=== PATIENT | female | born 2000 | race Caucasian/White ===

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

== ENCOUNTER 2022-01-06 12:33 | Emergency (ER) | payer OTHER, SELFPAY ==
--- NOTE | ~2022-01-06 | US_ITS ---
EXAMINATION: US PELVIS CLINICAL INFORMATION: IUD placement, pain COMPARISON: None TECHNIQUE: Ultrasound of the pelvis is performed using both transabdominal and transvaginal transducers along with Doppler. Transvaginal imaging is performed due to inadequate visualization transabdominally. FINDINGS: Uterus: The uterus is anteverted and measures 7.5 x 3.3 x 3.8 cm. IUD in satisfactory location without migration or perforation. The double wall endometrial thickness is 12 mm. The uterus is smooth in contour and has normal myometrial echogenicity. No visible fibroid. Adnexa: Both ovaries are visualized. There is normal color flow to the adnexa. There is no ovarian torsion. There is no pelvic ascites or fluid collection. Right ovary measures 5 mL in the left ovary also measures 5 mL. Trace physiologic free fluid in the cul-de-sac. US/US pelvic and transvaginal IMPRESSION: IUD in good position.
[2022-01-06 13:21] VITALS: BP 127/75; PULSE 80; RESP 16; TEMP 36.3; O2SAT 98; BMI 40.7
--- NOTE | 2022-01-06 16:59 | ED.GENADULT ---
HPI - General Adult General Chief complaint: Abdominal Pain Stated complaint: sharp abd pain after IUD Time Seen by Provider: 01/06/22 16:59 Source: patient and family (mother) Mode of arrival: ambulatory Limitations: no limitations History of Present Illness HPI narrative: Patient is a 21 year old female presenting to the emergency department today with abdominal cramping after having an IUD placed. Patient states that she had an IUD placed for the first time this past Sunday and starting 2 days after, has had abdominal pain. Patient states that she can still feel the strings of the IUD but is concerned that she can feel less string than she initially could. Patient denies any dizziness, lightheadedness, nausea, vomiting, fever, chills, blurry vision, double vision, loss of vision, chest pain, difficulty breathing, shortness of breath, back pain, night sweats, pain with urination, increased urinary frequency, increased urinary urgency, blood in her urine or stool, syncope or a near syncopal episode, recent trauma or falls, bowel incontinence, bladder incontinence, bowel retention, bladder retention, or any other complaints at this time. Onset (ago): day(s) (2) Location: abdomen Radiation: non-radiation Severity: mild Severity scale (1-10): 3 Quality: dull Pain Consistency: constant Relieving factors: none Exacerbating factors: none Associated symptoms: denies other symptoms Treatments prior to arrival: none Related Data Home Medications Medication Instructions Recorded Confirmed dextroamphetamine-amphetamine ER 1 cap PO DAILY PRN ADHD 09/08/21 12/05/21 30 mg 24hr capsule,extend release (Adderall XR) fluticasone propionate 50 2 spray intranasal DAILY PRN 09/08/21 12/05/21 mcg/actuation nasal Allergy Symptoms spray,suspension melatonin 5 mg tablet 15 mg PO BEDTIME PRN Sleep 09/08/21 12/05/21 Previous Rx's Medication Instructions Recorded apixaban 5 mg (74 tabs) tablets in See Rx Instructions .Route 09/07/21 a dose pack (Eliquis DVT-PE Treat .COMPLEX #74 ea 30D Start) ferrous sulfate 325 mg (65 mg 325 mg PO BID #60 tabs 09/13/21 iron) tablet (iron) oxycodone 5 mg capsule 5 mg PO Q8H PRN pain #3 caps 01/06/22 Allergies Allergy/AdvReac Type Severity Reaction Status Date / Time Penicillins [PCN] Allergy Unknown Verified 09/07/21 17:48 Review of Systems Constitutional: Constitutional: Reports no additional constitutional complaints, Denies chills, Denies fever(s) and Denies night sweats Eyes: Eyes: Reports no additional eye complaints, Denies blurry vision, Denies change in vision, Denies diplopia, Denies eye discharge, Denies loss of vision and Denies eye pain ENT: Denies dizziness Cardiovascular: Cardiovascular: Reports no additional cardiovascular complaints, Denies chest pain, Denies lightheadedness, Denies Loss of Consciousness and Denies dyspnea Respiratory: Respiratory: Reports no additional respiratory complaints and Denies dyspnea Gastrointestinal: Gastrointestinal: Reports no additional gastrointestinal complaints, Reports abdominal pain, Denies melena, Denies hematochezia, Denies change in bowel habits and Denies change in stool character Genitourinary: Genitourinary: Denies hematuria, Denies urinary frequency, Denies dysuria, Denies urinary incontinence, Denies urinary hesitancy and Denies urinary urgency Musculoskeletal: Musculoskeletal: Reports no additional musculoskeletal complaints, Denies numbness and Denies tingling Neurologic: Denies dizziness, Denies loss of vision, Denies numbness and Denies tingling Psychiatric: Psychiatric: Reports no additional psychiatric complaints Endocrine: Endocrine: Reports no additional endocrine complaints Hematologic/Lymphatic: Hematologic/Lymphatic: Reports no additional hematologic/lymphatic complaints Allergic/Immunologic: Allergic/Immunologic: Reports no additional allergic/immunologic complaints PMFSH Past Medical History Attestation statement: The following information was validated with the patient. Source: old records reviewed Medical History DVT (deep venous thrombosis) Surgical History No pertinent past surgical history Family History Family History Other DVT (deep venous thrombosis) No family history of coronary artery disease Pulmonary embolism Social History Social History Household Members: Family Housing: Apartment Alcohol intake: current Alcohol intake frequency: holidays/special occasions only Patient Tobacco Use Status: Never used Tobacco Use of substances other than those prescribed or required for medical reasons: No Advance Directives: Yes Advance Directives on File: Yes Advance Directives Date on File: 09/12/21 Patient : No service: No Current occupational status: employed Physical Exam ED Vital Signs: Vital Signs - 24 hr 01/06/22 13:21 01/06/22 18:15 Temperature 97.4 F 98.0 F Pulse Rate 80 83 Respiratory Rate 16 16 Blood Pressure 127/75 128/72 Pulse Oximetry 98 98 Oxygen Delivery Method Room Air Room Air BMI result Body Mass Index 40.7 Const General: cooperative, no acute distress, alert and awake Nutritional Appearance: well nourished Orientation/consciousness: patient oriented x3 Limitations: no limitations HENMT Head: Yes normal to inspection and Yes atraumatic Ears: hearing grossly normal bilaterally and external ears normal General nose exam: Normal external nose present, no nasal discharge noted and no epistaxis Face and sinus: Yes normal facial exam, No abrasion and No laceration Mouth: Normal oral and palatal mucosa present, no drooling and no muffled voice Eyes General: appearance normal, both eyes and all related structures Periorbital: periorbital findings normal Eyelids: Yes eyelids normal Conjunctivae: conjunctivae normal Pupils: Equal, round and reactive pupils present EOM: EOMs intact bilaterally Neck Neck: Yes normal visual inspection, Yes full ROM and Yes no lymphadenopathy Chest Chest palpation & inspection: normal inspection of the chest Resp Effort & Inspection: normal respiratory effort and able to speak in complete sentences Auscultation: clear to auscultation bilaterally Cardio Rate: regular rate Rhythm: regular rhythm GI Inspection: Yes normal to inspection Palpation (GI): Soft to palpation, not firm, nontender, no guarding and not rigid Neuro General: patient oriented x3 and moves all extremities Cranial nerves: Yes Equal, round and reactive pupils present Cognition (Neuro): normal cognition Motor exam (neuro): 5/5 motor strength present throughout Sensory Exam: Normal double simultaneous stimulation for sensation Coordination: [id number] test normal Extrem General: Yes normal to inspection, Yes full ROM and Yes capillary refill normal Psych Appearance: grossly normal Mental Status: mental status grossly normal Affect: normal affect Attitude: cooperative Thought process: Normal thought process present Thought content: Normal thought content present Insight: Good insight present (Psych) Medical Decision Making MDM Narrative Medical decision making narrative: Patient is a 21 year old female presenting to the emergency department today with abdominal cramping. Patient's physical exam was unremarkable. Patient's transvaginal US showed no acute process and showed an IUD in correct placement. I explained my physical exam findings as well as all test results to the patient and the patient's mother. I answered all questions asked by the patient and the patient's mother. I stressed the importance of the patient taking her medication as prescribed. I stressed the importance of the patient following up with her primary care provider and her OBGYN. I stressed the importance of the patient returning to the emergency department immediately if her symptoms were to worsen or if she were to develop any dizziness, shortness of breath, difficulty breathing, chest pain, blurry vision, loss of vision, nausea, vomiting, abdominal pain, fever, chills, back pain, or any other complaints. Patient and the patient's mother verbalized agreement and understanding with this treatment plan and discharge. Medical Records Medical records reviewed: Yes I reviewed the patient's medical records. Imaging Data Transvaginal ultrasound: Attestation: I personally reviewed and interpreted this imaging study as follows: My impression: No acute process. Radiologist's impression: EXAMINATION:? US PELVIS CLINICAL INFORMATION:? IUD placement, pain COMPARISON: None TECHNIQUE: Ultrasound of the pelvis is performed using both transabdominal and transvaginal transducers along with Doppler. Transvaginal imaging is performed due to inadequate visualization transabdominally. FINDINGS: Uterus: The uterus is anteverted and measures 7.5 x 3.3 x 3.8 cm.? IUD in satisfactory location without migration or perforation. The double wall endometrial thickness is 12 mm.? The uterus is smooth in contour and has normal myometrial echogenicity. ? No visible fibroid. Adnexa: Both ovaries are visualized. There is normal color flow to the adnexa. There is no ovarian torsion.? There is no pelvic ascites or fluid collection. Right ovary measures 5 mL in the left ovary also measures 5 mL. Trace physiologic free fluid in the cul-de-sac. US/US pelvic and transvaginal IMPRESSION: IUD in good position Dictated By: Rashawn Timmons MD Signed By: Electronically signed by Rashawn Timmons MD 01/06/22 [id number] Discharge Plan Discharge Clinical Impression: Uterine cramping Patient Disposition: Home, Self-Care Additional Instructions: Follow up with your primary care provider and your OBGYN. Return to the emergency department immediately if your symptoms worsen or if you develop any dizziness, shortness of breath, difficulty breathing, chest pain, blurry vision, loss of vision, nausea, vomiting, abdominal pain, fever, chills, back pain, or any other complaints. Prescriptions: New oxycodone 5 mg capsule 5 mg PO Q8H PRN (Reason: pain) Qty: 3 0RF Rx Instructions: Partial Fill upon patient request. No Action Eliquis DVT-PE Treat 30D Start 5 mg (74 tabs) tablets,dose pack See Rx Instructions .ROUTE .COMPLEX Qty: 74 0RF Rx Instructions: 10mg PO BID x 7 days 5mg BID ferrous sulfate [iron] 325 mg (65 mg iron) Tablet 325 mg PO BID Qty: 60 3RF dextroamphetamine-amphetamine [Adderall XR] 30 mg capsule,extended release 24hr 1 cap PO DAILY PRN (Reason: ADHD) fluticasone propionate 50 mcg/actuation spray,suspension 2 spray intranasal DAILY PRN (Reason: Allergy Symptoms) melatonin 5 mg Tablet 15 mg PO BEDTIME PRN (Reason: Sleep) [place] [facility] [place] [facility] [place] (Call to establish and follow up with a primary care provider. If you already have a primary care provider, please follow up with them. ) [facility] [place] [facility] [place] (Call to establish and follow up with a primary care provider. If you already have a primary care provider, please follow up with them. ) [facility] [place] [facility] [place] (Call to establish and follow up with a primary care provider. If you already have a primary care provider, please follow up with them. ) Interventions: ED Discharge Assessment Last Done: 01/06/22 18:34 Discharge Date/Time: 01/06/22 18:35 Print Language: Greek
[2022-01-06 18:15] VITALS: BP 128/72; PULSE 83; RESP 16; TEMP 36.7; O2SAT 98
== END 2022-01-06 18:35 | disposition home or self-care (01) ==
PROVIDERS: Emergency Provider Student in an Organized Health Care Education/Training Program
DX: R10.2 Pelvic and perineal pain (principal); N94.89 Other specified conditions associated with female genital organs and menstrual cycle; Z79.899 Other long term (current) drug therapy
CPT/HCPCS: 76830; 76856; 99284

== ENCOUNTER 2022-02-06 15:16 | Emergency (ER) | payer OTHER, SELFPAY ==
[2022-02-06 15:27] VITALS: BP 118/75; PULSE 98; RESP 18; TEMP 37.3; O2SAT 99; BMI 39.1
--- NOTE | 2022-02-06 15:34 | PC.NURSE ---
pt decided that she was going to leave after her vitals were stable in triage and her mother decided they needed to pick and shovel man the steroids vs wait 3 hours.
== END 2022-02-06 16:43 | disposition left against medical advice (07) ==
PROVIDERS: Emergency Provider Emergency Medicine
DX: J02.0 Streptococcal pharyngitis (principal)
CPT/HCPCS: 99281

== ENCOUNTER 2022-06-19 18:58 | Emergency (ER) | payer OTHER, SELFPAY ==
--- NOTE | ~2022-06-19 | US_ITS ---
EXAMINATION: US VENOUS ULTRASOUND WITH DOPPLER LOWER EXTREMITY, BILATERAL CLINICAL INFORMATION: Lower extremity swelling COMPARISON: None TECHNIQUE: Ultrasound of the deep veins is performed from the hip to the calf with compression sonography and color and pulse Doppler assessment. Spectral analysis with color-flow imaging is performed. FINDINGS: RIGHT: There is normal venous compression and respiratory variation and augmented flow. The visualized common femoral vein, superficial femoral vein, profunda femoral vein, popliteal vein, and the trifurcation region shows no evidence of deep venous thrombosis. There is no significant popliteal fossa cyst. LEFT: There is normal venous compression and respiratory variation and augmented flow. The visualized common femoral vein, superficial femoral vein, profunda femoral vein, popliteal vein, and the trifurcation region shows no evidence of deep venous thrombosis. There is no significant popliteal fossa cyst. Slightly prominent but otherwise normal-appearing lymph node noted in the left groin measuring up to 5.6 mm in cross-section If the patient's symptoms persist, followup ultrasound in 5 days 7 days might be of value to exclude proximal propagation from a non-visualized calf vein. US/US venous duplex LE BI IMPRESSION: No DVT demonstrated in the right and left lower extremity.
[2022-06-19 19:10] VITALS: BP 120/86; PULSE 91; RESP 18; TEMP 37.6; O2SAT 99; BMI 39.1
--- NOTE | 2022-06-19 19:13 | ECG_ITS ---
Test Reason : rule out dvt Blood Pressure : / mmHG Vent. Rate : 077 BPM Atrial Rate : 077 BPM P-R Int : 150 ms QRS Dur : 076 ms QT Int : 370 ms P-R-T Axes : 029 056 050 degrees QTc Int : 418 ms Normal sinus rhythm with sinus arrhythmia Normal ECG When compared with ECG of 07-OCT-2021 17:18, No significant change was found Referred By: Reyna Dugan Electronically Signed By:Alex Ferrari
--- NOTE | 2022-06-19 19:14 | ED.SOB ---
HPI - SOB/Dyspnea General Chief Complaint: Extremity Problem Stated Complaint: right leg pain, hx dvt and blood clogs Related Data Home Medications Medication Instructions Recorded Confirmed dextroamphetamine-amphetamine ER 1 cap PO DAILY PRN ADHD 09/08/21 01/17/22 30 mg 24hr capsule,extend release (Adderall XR) fluticasone propionate 50 2 spray intranasal DAILY PRN 09/08/21 01/17/22 mcg/actuation nasal Allergy Symptoms spray,suspension melatonin 5 mg tablet 15 mg PO BEDTIME PRN Sleep 09/08/21 01/17/22 Mirena vaginal DIRECTED birthcontrol 01/17/22 Previous Rx's Medication Instructions Recorded ferrous sulfate 325 mg (65 mg 325 mg PO BID #60 tabs 09/13/21 iron) tablet (iron) apixaban 2.5 mg tablet 2.5 mg PO BID #60 tabs 05/02/22 Allergies Allergy/AdvReac Type Severity Reaction Status Date / Time Penicillins [PCN] Allergy Unknown Verified 06/19/22 19:14 [facility] Past Medical History Medical History DVT (deep venous thrombosis) Surgical History No pertinent past surgical history Family History Family History Other DVT (deep venous thrombosis) No family history of coronary artery disease Pulmonary embolism Social History Social History Household Members: Family Housing: Apartment Alcohol intake: current Alcohol intake frequency: holidays/special occasions only Patient Tobacco Use Status: Never used Tobacco Advance Directives: Yes Advance Directives on File: Yes Advance Directives Date on File: 09/12/21 service: No Current occupational status: employed Physical Exam Vital Signs: Vital Signs: Last Vital Signs Temp 99.6 F 06/19/22 19:10 Pulse 91 06/19/22 19:10 Resp 18 06/19/22 19:10 BP 120/86 06/19/22 19:10 Pulse Ox 99 06/19/22 19:10 O2 Del Method 06/19/22 19:10 BMI result Body Mass Index 39.1 Course Course Course Narrative: RME - 21 yo female with history of Factor V Leiden with history of PE and DVT on low dose Eliquis 2.5 BID (dose reduction by Dr. Cuba in Jan) who presents to the ER with RLE pain for 1.5 weeks along with new onset SOB and chest pain today. Admits to frequently missing Eliquis doses. VSS in triage. Will get CTA chest, LE dopplers to assess for DVT/PE. Medical Decision Making Lab Data 06/19/22 20:17 06/19/22 20:17 Labs: Lab Results 06/19/22 06/19/22 Range/Units 20:17 20:17 WBC 8.6 (4.8-10.8) X10*3/uL RBC 4.51 (4.20-5.50) X10*6/uL Hgb 12.9 (12.0-16.0) g/dl Hct 37.7 (37.0-47.0) % MCV 83.6 (80.0-98.0) fL MCH 28.6 (27.0-33.0) pg MCHC 34.2 (31.0-35.0) g/dl RDW 12.6 (11.0-16.0) % Plt Count 239 (160-400) X10*3/uL MPV 9.9 (9.4-12.3) fL Immature Gran % (Auto) 0.2 (0.0-0.4) % Neut % (Auto) 60.6 (45-73) % Lymph % (Auto) 30.1 (20-40) % [place] % (Auto) 5.8 (2-11) % Eos % (Auto) 2.7 (0-4) % Baso % (Auto) 0.6 (0-2) % Lymph # (Auto) 2.6 (1.2-4.9) X10*3/uL [place] # (Auto) 0.5 (0.1-1.2) X10*3/uL Eos # (Auto) 0.2 (0.0-0.4) X10*3/uL Baso # (Auto) 0.1 (0.0-0.2) X10*3/uL Abs Immat Gran (auto) 0.02 (0.00-0.03) X10*3/uL Absolute Neuts (auto) 5.2 (2.0-8.3) x10*3/uL Absolute Nucleated RBC 0.000 (0.0-0.012) X10*3/uL Nucleated RBC % (auto) 0.0 (0.0-0.2) /100WBC Sodium 138 (135-145) mmol/L Potassium 3.9 (3.3-5.1) mmol/L Chloride 107 (96-108) mmol/L Carbon Dioxide 23 (22-29) mmol/L Anion Gap 12 (12-20) BUN 10 (9-16) mg/dL Creatinine 0.85 (0.5-1.4) mg/dL Estim Creat Clear Calc 138.3 Estimated GFR > 60 Random Glucose 85 (60-115) mg/dL Calcium 9.6 (8.4-10.2) mg/dL Magnesium 1.9 (1.6-2.6) mg/dL Total Bilirubin 0.5 (0.0-1.0) mg/dL Direct Bilirubin < 0.2 (0.0-0.5) mg/dL AST 19 (5-31) U/L ALT 15 (0-31) U/L Alkaline Phosphatase 57 (39-117) U/L Total Protein 7.2 (6.5-8.0) g/dL Albumin 4.4 (3.5-5.0) g/dL Discharge Plan Discharge Clinical Impression: Hypercoagulable state Patient Disposition: Left Without Being Seen Interventions: LWBS Worksheet Last Done: 06/19/22 22:32 Discharge Date/Time: 06/19/22 22:33
[2022-06-19 20:21] LABS: MANUAL DIFF FLAG NO
[2022-06-19 20:22] LABS: Basophils Absolute Auto 0.1 X10*3/uL (0.0-0.2); Basophils Percent Auto 0.6 % (0-2); Eosinophils Absolute Auto 0.2 X10*3/uL (0.0-0.4); Eosinophils Percent Auto 2.7 % (0-4); Hematocrit 37.7 % (37.0-47.0); Hemoglobin 12.9 g/dl (12.0-16.0); Imm Gran Abs Auto 0.02 X10*3/uL (0.00-0.03); Imm Gran Pct Auto 0.2 % (0.0-0.4); Lymphocytes Absolute Auto 2.6 X10*3/uL (1.2-4.9); Lymphocytes Percent Auto 30.1 % (20-40); Mean Corpuscular HGB Conc 34.2 g/dl (31.0-35.0); Mean Corpuscular Hemoglobin 28.6 pg (27.0-33.0); Mean Corpuscular Volume 83.6 fL (80.0-98.0); Mean Platelet Volume 9.9 fL (9.4-12.3); Monocytes Absolute Auto 0.5 X10*3/uL (0.1-1.2); Monocytes Percent Auto 5.8 % (2-11); Neutrophils Absolute Auto 5.2 x10*3/uL (2.0-8.3); Neutrophils Percent Auto 60.6 % (45-73); Platelet Count 239 X10*3/uL (160-400); Red Blood Count 4.51 X10*6/uL (4.20-5.50); Red Cell Distribution Width 12.6 % (11.0-16.0); White Blood Count 8.6 X10*3/uL (4.8-10.8)
--- NOTE | 2022-06-19 20:24 | MHC.EDTECH ---
pt blood drawn and send to lab ,ekg done .
[2022-06-19 20:41] LABS: Alanine Aminotransferase 15 U/L (0-31); Albumin Level 4.4 g/dL (3.5-5.0); Alkaline Phosphatase 57 U/L (39-117); Anion Gap 12 (12-20); Aspartate Amino Transferase 19 U/L (5-31); Bilirubin Direct < 0.2 mg/dL (0.0-0.5); Bilirubin Total 0.5 mg/dL (0.0-1.0); Blood Urea Nitrogen 10 mg/dL (9-16); Calcium 9.6 mg/dL (8.4-10.2); Carbon Dioxide 23 mmol/L (22-29); Chloride 107 mmol/L (96-108); Creatinine Clr Calc Pharmacy 138.3; Estimated Glomerular Filt Rate > 60; Glucose Random 85 mg/dL (60-115); Magnesium 1.9 mg/dL (1.6-2.6); Potassium 3.9 mmol/L (3.3-5.1); Sodium 138 mmol/L (135-145); Total Protein 7.2 g/dL (6.5-8.0)
== END 2022-06-19 22:33 | disposition left against medical advice (07) ==
PROVIDERS: Physician Assistant; Emergency Provider Emergency Medicine; PCP Pediatrics
DX: D68.51 Activated protein C resistance (principal); M79.604 Pain in right leg; R06.02 Shortness of breath; Z86.718 Personal history of other venous thrombosis and embolism; Z86.711 Personal history of pulmonary embolism; Z79.01 Long term (current) use of anticoagulants
CPT/HCPCS: 36415; 80048; 80076; 83735; 85025; 93005; 93970; 99283; 99284

== ENCOUNTER 2023-08-14 14:32 | Emergency (ER) | payer OTHER, SELFPAY ==
--- NOTE | ~2023-08-14 | CT_ITS ---
CT head/brain wo IV con CLINICAL INFORMATION: Reason for Exam hx clots, posterior ESPITIA COMPARISON: Prior CT September 2021 TECHNIQUE: Department standard protocol. This CT examination was performed using dose optimization techniques as appropriate, variously including the following: *Automated exposure control *Adjustment of mA and/or kV according to patient size (this includes techniques or standardized protocols for targeted exams where dose is matched to indication/reason for exam; i.e. extremities or head) *Use of iterative reconstruction technique DLP: 789 mGy-cm FINDINGS: CEREBRAL HEMISPHERES: There is no evidence of intra-axial or extra-axial mass, hemorrhage or acute infarct. BRAIN PARENCHYMA: Normal tolentino-white matter differentiation. SUBDURAL SPACE: No bleed. BASAL GANGLIA AND PINEAL GLAND: Unremarkable VENTRICLES: Symmetric and normal in size. CEREBELLUM AND BRAINSTEM: No space-occupying mass, hemorrhage or acute infarct. CEREBELLOPONTINE ANGLES: No lesion found. ORBITS: No intraorbital mass. VESSELS: Unremarkable SKULL BASE: Unremarkable INCLUDED SINUSES AT SKULL BASE: Clear SKULL AND SKIN: No fracture or bone lesion found. CT/CT head/brain wo IV con IMPRESSION: No CT explanation for patient's headache. If there is a clinical suspicion for possible intracranial venous thrombosis, would recommend correlation with follow-up contrast enhanced MRV.
--- NOTE | ~2023-08-14 | CT_ITS ---
EXAMINATION: CT VENOGRAM HEAD CLINICAL INFORMATION: Headache. History of blood clots. COMPARISON: CT head from 08/14/2023. CTA head and neck from 09/07/2021. TECHNIQUE: Initial noncontrast shaker operator imaging of the head was performed. Comparison is made with noncontrast head CT from earlier today. Test bolus sequences followed by intravenous administration 75 mL of Omnipaque 350. Helical imaging was performed in the axial plane from the skull base to the skull vertex. The data was processed at the aeronautical engineering technologist's workstation for generation of MIP sequences. Angled MIPs and volume rendered reformatted images were also generated at an offline 3D workstation. Stenoses are assessed in accordance with NASCET criteria unless otherwise indicated. This CT examination was performed using dose optimization techniques as appropriate, variously including the following: *Automated exposure control. *Adjustment of mA and/or kV according to patient size (this includes techniques or standardized protocols for targeted exams where dose is matched to indication/reason for exam; i.e. extremities or head). *Use of iterative reconstruction technique. DLP: 961 mGy-cm FINDINGS: CT Head: There is no evidence of acute intracranial hemorrhage or edematous territorial infarction. Suarez-white matter differentiation is preserved. There is no abnormal attenuation within the brain parenchyma. The ventricles are normal in morphology and size. No evidence for obstructive hydrocephalus. No abnormal mass effect or midline shift. No extra-axial fluid collections. No pathologic intra-axial enhancement. No acute soft tissue or osseous abnormalities. Mild mucosal thickening of the paranasal sinuses. Mild leftward nasal septal deviation. The mastoid air cells and middle ear cavities are clear. Brain CTV: Normal opacification of the superior sagittal and straight sinuses. Right dominant transverse/sigmoid sinuses. Chronic hypoplastic appearance of the left transverse sinus. The left sigmoid sinus is chronically diminutive but remains with normal opacification. Normal appearance of the cavernous sinus without abnormal filling defects or contours. No demonstrated significant abnormalities of the major intracranial arterial systems on limited evaluation. CT/CT angio head IMPRESSION: 1. No evidence of acute intracranial hemorrhage or edematous territorial infarction. 2. CTV of the head without evidence of cerebral venous sinus thrombosis.
[2023-08-14 15:24] VITALS: BP 120/75; PULSE 66; RESP 16; TEMP 36.6; O2SAT 97; BMI 46.9
--- NOTE | 2023-08-14 15:24 | ED_ITS ---
HPI - General Adult General Chief complaint: Headache Stated complaint: Dizziness/Headache/Disorientated Time Seen by Provider: 08/14/23 17:52 Source: patient Mode of arrival: ambulatory Limitations: no limitations History of Present Illness HPI narrative: 22 yo female with PMH of factor V leiden no longer on eliquis, migraine without auras, PEs, here with c/o 1 week atraumatic posterior headache and n/v. Was going to get CT head by PCP but CT scan broke today as outpatient. She denies fevers. She has tension down into the neck. Preceding this she did have mild URI but finished zpak. She notes she takes scheduled tylenol, motrin, aleve PRN. She is sensitive to lights and loud noises. MD complaint: headache Onset (ago): week(s) (1) Location: head Radiation: non-radiation Severity: severe Quality: other (throbbing) Pain Consistency: constant Relieving factors: none Exacerbating factors: other (noise, bright lights) Associated symptoms: headaches and nausea/vomiting Treatments prior to arrival: NSAID Related Data Home Medications ?Medication ?Instructions ?Recorded ?Confirmed melatonin 5 mg tablet 15 mg PO BEDTIME PRN Sleep 09/08/21 06/21/22 Mirena vaginal DIRECTED birthcontrol 01/17/22 Ritalin 10 mg PO DAILY 06/12/23 06/12/23 sertraline 100 mg tablet (Zoloft) 100 mg PO DAILY 06/12/23 06/12/23 trazodone 100 mg PO DAILY 06/12/23 06/12/23 Previous Rx's ?Medication ?Instructions ?Recorded apixaban 2.5 mg tablet 2.5 mg PO BID #60 tabs 06/12/23 metoclopramide HCl 10 mg tablet 10 mg PO Q6H PRN nausea and 08/14/23 (Reglan) vomiting #14 tabs Allergies Allergy/AdvReac Type Severity Reaction Status Date / Time clindamycin Allergy Hives Verified 08/14/23 15:27 Penicillins [PCN] Allergy Unknown Verified 08/14/23 15:27 Review of Systems 2 Review of Systems: Constitutional : No Fever, No Chills, No Fatigue ENT/Mouth : No sore throat, No Rhinorrhea Eyes: No Eye Pain, No Swelling, No Redness Cardiovascular : No Chest Pain, No SOB, No Dyspnea on Exertion Respiratory : No Cough, No Sputum Gastrointestinal : pos Nausea, pos Vomiting, No Diarrhea, No abdominal Pain Genitourinary : No Dysuria, No Urinary Frequency, No Hematuria, Musculoskeletal : No joint pain, No Myalgias, No Joint Swelling Skin : No Skin Lesions, No rash Neuro : No Weakness, No Numbness, No Dizziness, positive Headache Psych : No Anxiety/Panic, No Depression All other systems reviewed and are negative [facility] Past Medical History Attestation statement: The following information was validated with the patient. Source: old records reviewed Medical History Celiac disease DVT (deep venous thrombosis) Surgical History No pertinent past surgical history Family History Family History Other DVT (deep venous thrombosis) No family history of coronary artery disease Pulmonary embolism Social History Social History Household Members: Family Housing: Apartment Alcohol intake: current Alcohol intake frequency: holidays/special occasions only Patient Tobacco Use Status: Never used Tobacco Smoked in Last 30 Days: No Use of substances other than those prescribed or required for medical reasons: No Advance Directives: Yes Advance Directives on File: Yes Advance Directives Date on File: 09/12/21 service: No Current occupational status: employed Physical Exam ED Vital Signs: Vital Signs - 24 hr 08/14/23 15:24 08/14/23 17:47 08/14/23 18:18 Temperature 97.9 F 98.3 F Pulse Rate 66 73 70 Respiratory Rate 16 20 18 Blood Pressure 120/75 109/66 112/64 Pulse Oximetry 97 97 96 Oxygen Delivery Method Room Air Room Air Room Air 08/14/23 19:55 08/14/23 20:10 Temperature Pulse Rate 55 60 Respiratory Rate 14 14 Blood Pressure 93/43 L 107/71 Pulse Oximetry 97 Oxygen Delivery Method Room Air BMI result Body Mass Index 46.9 Appearance: Alert. Oriented X3. No acute distress. Eyes: Pupils equal, round and reactive to light. ENT: Pharynx normal. has ttp on posterior scalp Neck: Normal inspection. no meningeal signs CVS: Normal heart rate and rhythm. Pulses normal. Respiratory: No respiratory distress. Breath sounds normal. Abdomen: Soft and nontender. Skin: Skin warm and dry. Normal skin color. Normal skin turgor. Extremities: No lower extremity edema. Neuro: Oriented X 3. No motor deficit. No sensory deficit. Course Course Course Narrative: RME:?22 yo female hx of migraine w/o aura, PE/ DVT (2 yrs ago- d/c eliquis 2 mo ago), obesity here for eval of ESPITIA x1 week. no trauma/injury to the head. PCP ordered outpatient CT head/brain at [facility] however she was unable to as their ct was done. taking OTC meds without relief. LMP unknown d/t IUD and irregular menstruation. denies chest pain, N/V, vision changes. exam nonfocal, cerebellum intact. ambulating with steady gait. labs, CT ordered. Full HPI, ROS and PE to be performed by the primary ED provider. Reevaluation(s) Reevaluation #1: headache resolved feels much better at this time Reevaluation #2: signed out to [facility] pending CT head result Medications Administered Discontinued Medications Generic Name Dose Route Start Last Admin Trade Name Freq PRN Reason Stop Dose Admin Diphenhydramine HCl 25 mg 08/14/23 18:08 08/14/23 18:31 Diphenhydramine Hcl 50 Mg/Ml Vial IVPUSH 08/14/23 18:09 25 mg ONCE ONE Administration Sodium Chloride 1,000 mls @ 999 mls/hr 08/14/23 18:15 08/14/23 20:39 Ns IV 08/14/23 19:15 Infused .Q1H1M CHELO Infusion Sodium Chloride 1,000 mls @ 999 mls/hr 08/14/23 20:15 08/14/23 20:37 Ns IV 08/14/23 21:15 Not Given .Q1H1M CHELO Iohexol 100 ml 08/14/23 19:13 08/14/23 19:13 Iohexol 350 Mg/Ml 100 Ml Infus..Btl IV 08/14/23 19:14 75 ml ONCE ONE Administration Ketorolac Tromethamine 15 mg 08/14/23 18:08 08/14/23 18:29 Ketorolac Tromethamine 15 Mg/Ml Vial IVPUSH 04/09/24 18:09 15 mg ONCE ONE Administration Lorazepam 1 mg 08/14/23 18:47 08/14/23 19:52 Lorazepam 2 Mg/Ml Vial IVPUSH 08/14/23 18:48 Not Given STAT STA Metoclopramide HCl 10 mg 08/14/23 18:08 08/14/23 18:33 Metoclopramide Hcl 10 Mg/2 Ml Vial IVPUSH 08/14/23 18:09 10 mg ONCE ONE Administration Medical Decision Making Medical Decision Making [facility] Narrative: 22 yo female with PMH of factor V leiden no longer on eliquis, migraine without auras, PEs, here with 1 week of headaches - not on OCPs no neck trauma or manipulation has no fevers no associated numbness weakness no meningeal signs. At this time CTV ordered for clot though low suspicion. She has prior stenosis but distal P2 segment and she has no focal deficits. She does have hx of headaches as well could be refractory migraine - migraine medications ordered. 21:44 I assumed care of this patient from my colleague, Dr. Jamarcus Meza at 21:[address] scan of the head without IV contrast was unremarkable. CT angiogram head revealed no significant abnormalities with no aneurysms or cavernous sinus thrombosis. Patient states that treatment received earlier (Toradol, lorazepam, Reglan and Benadryl) completely resolved her pain. Patient was started on the following regimen every 6 hours: Reglan 10 mg, Benadryl 50 mg, Excedrin migraine 2 pills as needed for pain. She states she does have a follow-up appointment with the neurologist and I encouraged her to keep this appointment to further evaluate her headache syndrome. She was given printed and verbal instructions and discharged home. Dr. Hall Differential Diagnosis Differential Diagnoses: The differential diagnosis associated with the presentation includes migraine, tension, central venous thrombosis less likely given chronicity doubt mass/ICH Admission/Observation Consideration of admission/observation: Escalation of care including admission/observation considered Lab Data [facility] Lab Attestation statement: I reviewed the patient's lab results. 08/14/23 15:45 08/14/23 15:45 Labs: Lab Results 08/14/23 Range/Units 15:45 WBC 7.8 (4.8-10.8) X10*3/uL RBC 4.56 (4.20-5.50) X10*6/uL Hgb 13.4 (12.0-16.0) g/dl Hct 39.7 (37.0-47.0) % MCV 87.1 (80.0-98.0) fL MCH 29.4 (27.0-33.0) pg MCHC 33.8 (31.0-35.0) g/dl RDW 13.2 (11.0-16.0) % Plt Count 192 (160-400) X10*3/uL MPV 10.5 (9.4-12.3) fL Immature Gran % (Auto) 0.1 (0.0-0.4) % Neut % (Auto) 61.3 (45-73) % Lymph % (Auto) 28.4 (20-40) % Campbell % (Auto) 6.1 (2-11) % Eos % (Auto) 3.6 (0-4) % Baso % (Auto) 0.5 (0-2) % Lymph # (Auto) 2.2 (1.2-4.9) X10*3/uL Campbell # (Auto) 0.5 (0.1-1.2) X10*3/uL Eos # (Auto) 0.3 (0.0-0.4) X10*3/uL Baso # (Auto) 0.0 (0.0-0.2) X10*3/uL Abs Immat Gran (auto) 0.01 (0.00-0.03) X10*3/uL Absolute Neuts (auto) 4.8 (2.0-8.3) x10*3/uL Absolute Nucleated RBC 0.000 (0.0-0.012) X10*3/uL Nucleated RBC % (auto) 0.0 (0.0-0.2) /100WBC PT 11.6 (11.1-13.3) SEC INR 1.0 (0.9-1.1) APTT 30.1 (26.0-36.8) SEC Sodium 140 (135-145) mmol/L Potassium 4.3 (3.3-5.1) mmol/L Chloride 107 (96-108) mmol/L Carbon Dioxide 24 (22-29) mmol/L Anion Gap 13 (12-20) BUN 11 (9-16) mg/dL Creatinine 0.89 (0.5-1.4) mg/dL Estim Creat Clear Calc 145.3 Estimated GFR > 60 Random Glucose 86 (60-115) mg/dL Calcium 9.7 (8.4-10.2) mg/dL Magnesium 1.9 (1.6-2.6) mg/dL Total Bilirubin 0.3 (0.0-1.0) mg/dL AST 23 (5-31) U/L ALT 21 (0-31) U/L Alkaline Phosphatase 56 (39-117) U/L C-Reactive Protein 0.75 H (< or = 0.50) mg/dL Total Protein 7.5 (6.5-8.0) g/dL Albumin 4.3 (3.5-5.0) g/dL Beta HCG, Quant < 2 mIU/mL Independent Interpretation I performed an independent interpretation of an: CT Scan (no mass, no ICH) Radiology Impression Discussion of test interpretation with radiology: I have reviewed the radiologist's reading. Radiologist Impression: CT angio head IMPRESSION: 1. No evidence of acute intracranial hemorrhage or edematous territorial infarction. 2. CTV of the head without evidence of cerebral venous sinus thrombosis. Dictated By: Herman Burnett DO CT head/brain wo IV con IMPRESSION: No CT explanation for patient's headache. If there is a clinical suspicion for possible intracranial venous thrombosis, would recommend correlation with follow-up contrast enhanced MRV. Dictated By: Ifrah Johnson MD Independent Historian Clinical information obtained from an independent historian. History obtained from or confirmed by: Spouse External Record Review External record reviewed: Inpatient record Prescription Management I considered prescription management with: Other (Metoclopramide (Reglan)) Chronic Conditions Patient?s care impacted by: Other (Leiden factor 5 deficiency) Discharge Plan Discharge Clinical Impression: Headache Qualifiers: Headache type: unspecified Headache chronicity pattern: acute headache I ntractability: not intractable Qualified Code(s): R51.9 - Headache, unspecified Patient Disposition: Home, Self-Care Instructions: Acute Headache (ED) Additional Instructions: Your blood work was unremarkable. The CT scan of your head without contrast was normal with no significant tumors the brain or bleeding in the brain noted The CT angiogram of your brain revealed no bleeding in the brain, no aneurysms and no blood clots. Sometimes it is difficult to explain the cause of headache but the negative workup today is reassuring. I want you to take the following 3 medications together every 6 hours as needed for headache, nausea or vomiting. ? Reglan (metoclopramide) in 10 mg, 1 pill Benadryl 25 mg, 2 pills Excedrin migraine, 2 pills. After you take these medications, lie down in a dark quiet room and try to fall asleep. ?These medications will make you sleepy, do not drive or work after taking these medications. Follow-up with your doctor in 2 days. Please return to the emergency department if your symptoms get worse or if you develop any symptoms that are concerning to you. Prescriptions: New metoclopramide HCl [Reglan] 10 mg tablet 10 mg PO Q6H PRN (Reason: nausea and vomiting) Qty: 14 0RF No Action Mirena implant vaginal DIRECTED trazodone 100 mg PO DAILY sertraline [Zoloft] 100 mg Tablet 100 mg PO DAILY Ritalin 10 mg PO DAILY apixaban 2.5 mg Tablet 2.5 mg PO BID Qty: 60 6RF melatonin 5 mg Tablet 15 mg PO BEDTIME PRN (Reason: Sleep) Stand Alone Forms: Work/School Release Print Language: Vincentian
[2023-08-14 15:48] LABS: MANUAL DIFF FLAG NO
[2023-08-14 15:52] LABS: Basophils Percent Auto 0.5 % (0-2); Eosinophils Absolute Auto 0.3 X10*3/uL (0.0-0.4); Eosinophils Percent Auto 3.6 % (0-4); Hematocrit 39.7 % (37.0-47.0); Hemoglobin 13.4 g/dl (12.0-16.0); Imm Gran Abs Auto 0.01 X10*3/uL (0.00-0.03); Imm Gran Pct Auto 0.1 % (0.0-0.4); Lymphocytes Absolute Auto 2.2 X10*3/uL (1.2-4.9); Lymphocytes Percent Auto 28.4 % (20-40); Mean Corpuscular HGB Conc 33.8 g/dl (31.0-35.0); Mean Corpuscular Hemoglobin 29.4 pg (27.0-33.0); Mean Corpuscular Volume 87.1 fL (80.0-98.0); Mean Platelet Volume 10.5 fL (9.4-12.3); Monocytes Absolute Auto 0.5 X10*3/uL (0.1-1.2); Monocytes Percent Auto 6.1 % (2-11); Neutrophils Absolute Auto 4.8 x10*3/uL (2.0-8.3); Neutrophils Percent Auto 61.3 % (45-73); Platelet Count 192 X10*3/uL (160-400); Red Blood Count 4.56 X10*6/uL (4.20-5.50); Red Cell Distribution Width 13.2 % (11.0-16.0); White Blood Count 7.8 X10*3/uL (4.8-10.8)
[2023-08-14 16:02] LABS: Prothrombin Time 11.6 SEC (11.1-13.3)
[2023-08-14 16:04] LABS: Partial Thromboplastin Time 30.1 SEC (26.0-36.8)
[2023-08-14 16:14] LABS: Alanine Aminotransferase 21 U/L (0-31); Albumin Level 4.3 g/dL (3.5-5.0); Alkaline Phosphatase 56 U/L (39-117); Anion Gap 13 (12-20); Aspartate Amino Transferase 23 U/L (5-31); Bilirubin Total 0.3 mg/dL (0.0-1.0); Blood Urea Nitrogen 11 mg/dL (9-16); Calcium 9.7 mg/dL (8.4-10.2); Carbon Dioxide 24 mmol/L (22-29); Chloride 107 mmol/L (96-108); Creatinine Clr Calc Pharmacy 145.3; Estimated Glomerular Filt Rate > 60; Glucose Random 86 mg/dL (60-115); HCG Quantitative < 2 mIU/mL; Magnesium 1.9 mg/dL (1.6-2.6); Potassium 4.3 mmol/L (3.3-5.1); Sodium 140 mmol/L (135-145); Total Protein 7.5 g/dL (6.5-8.0)
[2023-08-14 17:47] VITALS: BP 109/66; PULSE 73; RESP 20; TEMP 36.8; O2SAT 97
[2023-08-14 18:18] VITALS: BP 112/64; PULSE 70; RESP 18; O2SAT 96
[2023-08-14 18:28] LABS: C Reactive Protein 0.75 mg/dL (< or = 0.50)
[2023-08-14] MEDS: Ketorolac Tromethamine 15 MG/ML VIAL IVPUSH (18:29)
[2023-08-14] MEDS: diphenhydrAMINE HCL 50 MG/ML VIAL 25 MG IVPUSH (18:31)
[2023-08-14] MEDS: Metoclopramide HCl 10 MG/2 ML VIAL IVPUSH (18:33)
[2023-08-14] MEDS: 0.9 % Sodium Chloride 1,000 ML 999 ML IV (18:34)
--- NOTE | 2023-08-14 18:40 | PC.NURSE ---
Pt coming from home, reports headache X1 week, constant and throbbing. Pt reports nausea with 1 episode of vomiting today. Pt denies hx of migraines or headaches. Pain is 8/10, throbbing, back of head. Pt reports sensitivity to light. Pt denies weakness, trouble walking, dizziness, CP or SOB. Pt is alert and oriented, breathing even and unlabored, skin WNL. Pt neg for unilateral weakness, slurred speech and facial droop.
[2023-08-14] MEDS: iohexoL 350 MG/ML 100 ML INFUS..BTL IV (19:13)
[2023-08-14 19:55] VITALS: BP 93/43; PULSE 55; RESP 14; O2SAT 97
[2023-08-14 20:10] VITALS: BP 107/71; PULSE 60; RESP 14
--- NOTE | 2023-08-14 20:39 | PC.NURSE ---
Pt aox4 reports no pain and no headache. Requesting IV line be removed. IV line removed. Pending CTA results. Pt aware of plan of care.
--- NOTE | 2023-08-14 20:53 | MHC.EDTECH ---
Assumed care at 20:30
[2023-08-14 22:08] VITALS: BP 107/71; PULSE 60; RESP 14; TEMP 36.8; O2SAT 99
== END 2023-08-14 21:55 | disposition home or self-care (01) ==
PROVIDERS: Emergency Medicine; Physician Assistant Medical; Emergency Provider Emergency Medicine Emergency Medical Services; PCP Family Medicine
DX: R51.9 Headache, unspecified (principal); R11.2 Nausea with vomiting, unspecified; D68.51 Activated protein C resistance; Z86.718 Personal history of other venous thrombosis and embolism
CPT/HCPCS: 36415; 70450; 70496; 80053; 83735; 84702; 85025; 85610; 85730; 86140; 96361; 96374; 96375; 99284; 99285; J1200; J1885; J2765; Q9967

== ENCOUNTER 2023-08-28 20:57 | Emergency (ER) | payer OTHER, SELFPAY | END 2023-08-29 00:45 | disposition left against medical advice (07) | PROVIDERS: Emergency Provider Emergency Medicine; PCP Family Medicine | DX: R11.10 Vomiting, unspecified (principal); Z53.21 Procedure and treatment not carried out due to patient leaving prior to being seen by health care provider ==

== ENCOUNTER 2023-09-21 11:26 | Outpatient (REF) | payer OTHER, SELFPAY ==
--- NOTE | ~2023-09-21 | US_ITS ---
EXAMINATION: US VENOUS ULTRASOUND WITH DOPPLER LOWER EXTREMITY, LEFT CLINICAL INFORMATION: Recurrent pain, history of DVT. COMPARISON: 06/19/2022 TECHNIQUE: Ultrasound of the deep veins is performed from the hip to the calf with compression sonography and color and pulse Doppler assessment. Spectral analysis with color-flow imaging is performed. FINDINGS: The common femoral vein is compressible and exhibits a normal phasic waveform; this suggests that the iliac veins are widely patent above. Within the proximal thigh, the visualized profunda femoris vein is normal. The examined greater saphenous vein and saphenofemoral junction are normal. Superficial femoral vein is patent in the proximal, mid and distal thigh. Popliteal vein is normal to the level of the trifurcation. On compression valles scale and color Doppler images, the visualized posterior tibial and peroneal veins of the calf are patent. No evidence of Toney's cyst. US/US venous duplex LE LT IMPRESSION: No evidence of deep vein thrombosis in the left lower extremity.
== END 2023-09-21 11:27 | disposition home or self-care (01) ==
LOC: HO.HMGCX 11:26
PROVIDERS: PCP Family Medicine; Visit Provider Internal Medicine
DX: D68.59 Other primary thrombophilia (principal)
CPT/HCPCS: 93971

== ENCOUNTER 2023-11-22 19:11 | Emergency (ER) | payer OTHER, SELFPAY ==
--- NOTE | ~2023-11-22 | US_ITS ---
EXAMINATION: US ABDOMEN LIMITED CLINICAL INFORMATION: Right upper quadrant pain. COMPARISON: None available. TECHNIQUE: Real-time imaging of the right upper quadrant abdominal viscera. FINDINGS: PANCREAS: Visualized pancreatic head and body are unremarkable, the tail is obscured by overlying bowel gas. LIVER: Normal. The liver is normal in size. The liver contour is normal. Parenchymal echogenicity is normal. No focal hepatic lesion. There is no intrahepatic biliary duct dilatation seen. GALLBLADDER: Normal. The gallbladder is physiologically distended without evidence of stones, sludge, polyps, wall thickening or pericholecystic fluid. COMMON BILE DUCT: Normal in caliber measuring 0.3 cm in diameter. RIGHT KIDNEY: Normal. No hydronephrosis. No renal calculi or focal parenchymal lesions. The kidney measures 10.9 cm in maximum dimension. FREE FLUID: None. US/US abdomen limited IMPRESSION: Unremarkable right upper quadrant ultrasound.
[2023-11-22 19:23] VITALS: BP 126/78; PULSE 76; RESP 18; TEMP 36.4; O2SAT 98; BMI 45.4
--- NOTE | 2023-11-22 19:23 | ED_ITS ---
HPI - General Adult General Stated complaint: rt side abd pain/urgent care porsha sent her here Related Data Home Medications ?Medication ?Instructions ?Recorded ?Confirmed melatonin 5 mg tablet 15 mg PO BEDTIME PRN Sleep 09/08/21 09/18/23 Mirena 0 mg vaginal DIRECTED 01/17/22 09/18/23 birthcontrol Ritalin 10 mg PO DAILY 06/12/23 09/18/23 trazodone 100 mg PO DAILY 06/12/23 09/18/23 duloxetine 60 mg capsule,delayed 60 mg PO QAM 09/18/23 09/18/23 release Previous Rx's ?Medication ?Instructions ?Recorded apixaban 2.5 mg tablet 2.5 mg PO BID #60 tabs 06/12/23 metoclopramide HCl 10 mg tablet 10 mg PO Q6H PRN nausea and 08/14/23 (Reglan) vomiting #14 tabs Allergies Allergy/AdvReac Type Severity Reaction Status Date / Time clindamycin Allergy Hives Verified 11/22/23 19:24 Penicillins [PCN] Allergy Unknown Verified 11/22/23 19:24 [facility] Past Medical History Medical History Celiac disease DVT (deep venous thrombosis) Surgical History No pertinent past surgical history Family History Family History Other DVT (deep venous thrombosis) No family history of coronary artery disease Pulmonary embolism Social History Social History Household Members: Family Housing: Apartment Alcohol intake: current Alcohol intake frequency: holidays/special occasions only Patient Tobacco Use Status: Never used Tobacco Advance Directives Date on File: 09/12/21 service: No Current occupational status: employed Course Course Course Narrative: RME, this is a rapid medical exam performed by Ayaan Beltran please refer to primary provider for complete H&P- 23-year-old female presents for evaluation of right upper abdominal pain. Her pain started yesterday a few hours after eating. She does have some nausea. She was sent here from urgent care. She has urinalysis results from earlier today and she is not . Plan for labs and a right upper quadrant ultrasound Discharge Plan Discharge Prescriptions: No Action Mirena implant 0 mg vaginal DIRECTED trazodone 100 mg PO DAILY Ritalin 10 mg PO DAILY apixaban 2.5 mg Tablet 2.5 mg PO BID Qty: 60 6RF duloxetine 60 mg capsule,delayed release(DR/EC) 60 mg PO QAM melatonin 5 mg Tablet 15 mg PO BEDTIME PRN (Reason: Sleep) metoclopramide HCl [Reglan] 10 mg tablet 10 mg PO Q6H PRN (Reason: nausea and vomiting) Qty: 14 0RF Print Language: Danish
[2023-11-22 19:42] LABS: MANUAL DIFF FLAG NO
[2023-11-22 19:43] LABS: Basophils Absolute Auto 0.1 X10*3/uL (0.0-0.2); Basophils Percent Auto 0.6 % (0-2); Eosinophils Absolute Auto 0.4 X10*3/uL (0.0-0.4); Eosinophils Percent Auto 3.9 % (0-4); Hematocrit 39.3 % (37.0-47.0); Hemoglobin 13.7 g/dl (12.0-16.0); Imm Gran Abs Auto 0.03 X10*3/uL (0.00-0.03); Imm Gran Pct Auto 0.3 % (0.0-0.4); Lymphocytes Absolute Auto 3.1 X10*3/uL (1.2-4.9); Lymphocytes Percent Auto 33.2 % (20-40); Mean Corpuscular HGB Conc 34.9 g/dl (31.0-35.0); Mean Corpuscular Hemoglobin 30.6 pg (27.0-33.0); Mean Corpuscular Volume 87.9 fL (80.0-98.0); Mean Platelet Volume 10.2 fL (9.4-12.3); Monocytes Absolute Auto 0.5 X10*3/uL (0.1-1.2); Monocytes Percent Auto 5.2 % (2-11); Neutrophils Absolute Auto 5.4 x10*3/uL (2.0-8.3); Neutrophils Percent Auto 56.8 % (45-73); Platelet Count 210 X10*3/uL (160-400); Red Blood Count 4.47 X10*6/uL (4.20-5.50); Red Cell Distribution Width 13.1 % (11.0-16.0); White Blood Count 9.5 X10*3/uL (4.8-10.8)
[2023-11-22 19:58] LABS: Alanine Aminotransferase 21 U/L (0-31); Albumin Level 4.6 g/dL (3.5-5.0); Alkaline Phosphatase 53 U/L (39-117); Anion Gap 16 (12-20); Aspartate Amino Transferase 22 U/L (5-31); Bilirubin Total 0.3 mg/dL (0.0-1.0); Blood Urea Nitrogen 11 mg/dL (9-16); Calcium 10.2 mg/dL (8.4-10.2); Carbon Dioxide 24 mmol/L (22-29); Chloride 105 mmol/L (96-108); Creatinine Clr Calc Pharmacy 133.9; Estimated Glomerular Filt Rate > 60; Glucose Random 86 mg/dL (60-115); Lipase 19 U/L (8-78); Potassium 4.2 mmol/L (3.3-5.1); Sodium 141 mmol/L (135-145); Total Protein 7.5 g/dL (6.5-8.0)
== END 2023-11-22 21:39 | disposition left against medical advice (07) ==
PROVIDERS: Physician Assistant; Emergency Provider Emergency Medicine; PCP Family Medicine
DX: R10.11 Right upper quadrant pain (principal); R11.0 Nausea; K90.0 Celiac disease; Z86.718 Personal history of other venous thrombosis and embolism; Z79.01 Long term (current) use of anticoagulants; Z79.899 Other long term (current) drug therapy
CPT/HCPCS: 36415; 76705; 80053; 83690; 85025; 99281

== ENCOUNTER 2024-05-13 12:56 | Outpatient (REF) | payer OTHER, SELFPAY ==
--- NOTE | ~2024-05-13 | US_ITS ---
EXAMINATION: US RETROPERITONEUM HISTORY: HYDRO TECHNIQUE: Real-time grayscale ultrasound imaging of the kidneys was performed and images were reviewed. COMPARISON: Correlation is made with an abdominal ultrasound dated 11/22/2023. FINDINGS: Right kidney: The right kidney measures 10.3 x 4.5 x 7.0 cm. Renal parenchymal echotexture and thickness are normal. There are no masses. There is mild hydronephrosis. No calculi are identified. Left Kidney: The left kidney measures 11.7 x 4.6 x 5.9 cm. Renal parenchymal echotexture and thickness are normal. There are no masses. There is no hydronephrosis or renal calculi. The urinary bladder is unremarkable. Bilateral ureteral jets are identified. After voiding, the urinary bladder measured 7.0 x 5.4 x 7.7 cm for an estimated volume of 151 mL. US/US retroperitoneal comp IMPRESSION: Mild right hydronephrosis. Post void bladder residual of 155 mL. Electronically signed by: Eduardo Rodriguez MD 05/15/2024 08:35 AM EST
== END 2024-05-13 12:57 | disposition home or self-care (01) ==
LOC: HO.HMGCX 12:56
PROVIDERS: PCP Family Medicine; Visit Provider Nurse Practitioner Family
DX: N13.30 Unspecified hydronephrosis (principal)
CPT/HCPCS: 76770

== ENCOUNTER → 2024-05-13 13:00 | Outpatient (BNV) | payer OTHER, SELFPAY | PROVIDERS: PCP Family Medicine; Visit Provider Radiology Diagnostic Radiology | DX: N13.30 Unspecified hydronephrosis (principal) | CPT/HCPCS: 76770 ==

== ENCOUNTER 2024-07-02 19:14 | Emergency (ER) | payer OTHER, SELFPAY ==
--- NOTE | ~2024-07-02 | US_ITS ---
CLINICAL HISTORY: right pelvic pain US pelvis transabdominal and transvaginal Comparison: US/SR - US PELVIC AND TRANSVAGINAL - 01/06/22 17:12 EDT Findings: Transabdominal scanning performed for overall anatomy. Transvaginal scanning performed for additional detail. Anteverted uterus is 7.7 cm length. Normal myometrium. Endometrium not well visualized, there is an IUD in expected position within the endometrial cavity. Right ovary is not visualized Left ovary measures 1.6 x 1.9 x 1.3 cm. Left ovary demonstrates normal grayscale appearance. No free fluid. IMPRESSION: 1. Normal appearance of the uterus and left ovary. Nonvisualization of the right ovary. 2. IUD in expected position within the uterus. This document has been electronically signed by: Marcell Jon MD on 07/02/2024 20:14:01
--- NOTE | 2024-07-02 19:16 | ED.GENADULT ---
HPI - General Adult General Chief complaint: Abdominal Pain Stated complaint: abd pain Related Data Home Medications ?Medication ?Instructions ?Recorded ?Confirmed melatonin 5 mg tablet 15 mg PO BEDTIME PRN Sleep 09/08/21 09/18/23 Mirena 0 mg vaginal DIRECTED 01/17/22 09/18/23 birthcontrol Ritalin 10 mg PO DAILY 06/12/23 09/18/23 trazodone 100 mg PO DAILY 06/12/23 09/18/23 lorazepam 1 mg tablet 1 mg PO 04/08/24 sertraline 100 mg tablet (Zoloft) mg 04/08/24 Allergies Allergy/AdvReac Type Severity Reaction Status Date / Time clindamycin Allergy Hives Verified 07/02/24 19:19 Penicillins [PCN] Allergy Unknown Verified 07/02/24 19:19 [facility] Past Medical History Medical History Celiac disease DVT (deep venous thrombosis) Surgical History No pertinent past surgical history Family History Family History Other DVT (deep venous thrombosis) No family history of coronary artery disease Pulmonary embolism Social History Social History Household Members: Family Housing: Apartment Alcohol intake: current Alcohol intake frequency: holidays/special occasions only Patient Tobacco Use Status: Never used Tobacco Advance Directives: Yes Advance Directives on File: Yes Advance Directives Date on File: 09/12/21 Do you have a plan to hurt others: No Plan service: No Current occupational status: employed Physical Exam ED Vital Signs: BMI result Body Mass Index 43.8 Course Course Course Narrative: RME, this is a rapid medical exam performed by Ayaan Beltran please refer to primary provider for complete H&P- 23-year-old female presents for evaluation of pelvic pain. She reports her symptoms started a few hours ago. Denies any vaginal bleeding or discharge. Her pain is worse with taking a deep breath. She has an IUD for the last 4 years. She has not had a menstrual cycle in about 1 year. plan for labs and urinalysis Medical Decision Making Lab Data 07/02/24 20:02 07/02/24 20:02 Labs: Lab Results 07/02/24 07/02/24 Range/Units 20:02 20:20 WBC 8.8 (4.8-10.8) X10*3/uL RBC 4.46 (4.20-5.50) X10*6/uL Hgb 13.1 (12.0-16.0) g/dl Hct 38.8 (37.0-47.0) % MCV 87.0 (80.0-98.0) fL MCH 29.4 (27.0-33.0) pg MCHC 33.8 (31.0-35.0) g/dl RDW 13.1 (11.0-16.0) % Plt Count 201 (160-400) X10*3/uL MPV 11.0 (9.4-12.3) fL Immature Gran % (Auto) 0.2 (0.0-0.4) % Neut % (Auto) 63.4 (45-73) % Lymph % (Auto) 26.1 (20-40) % [place] % (Auto) 6.5 (2-11) % Eos % (Auto) 3.3 (0-4) % Baso % (Auto) 0.5 (0-2) % Lymph # (Auto) 2.3 (1.2-4.9) X10*3/uL [place] # (Auto) 0.6 (0.1-1.2) X10*3/uL Eos # (Auto) 0.3 (0.0-0.4) X10*3/uL Baso # (Auto) 0.0 (0.0-0.2) X10*3/uL Abs Immat Gran (auto) 0.02 (0.00-0.03) X10*3/uL Absolute Neuts (auto) 5.6 (2.0-8.3) x10*3/uL Absolute Nucleated RBC 0.000 (0.0-0.012) X10*3/uL Nucleated RBC % (auto) 0.0 (0.0-0.2) /100WBC Sodium 137 (135-145) mmol/L Potassium 4.0 (3.3-5.1) mmol/L Chloride 109 H (96-108) mmol/L Carbon Dioxide 21 L (22-29) mmol/L Anion Gap 11 L (12-20) BUN 11 (9-16) mg/dL Creatinine 0.92 (0.5-1.4) mg/dL Estim Creat Clear Calc 134.0 Estimated GFR > 60 Random Glucose 123 H (60-115) mg/dL Calcium 9.3 D (8.4-10.2) mg/dL Total Bilirubin 0.2 (0.0-1.0) mg/dL AST 21 (5-31) U/L ALT 19 (0-31) U/L Alkaline Phosphatase 55 (39-117) U/L Total Protein 7.4 (6.5-8.0) g/dL Albumin 4.1 (3.5-5.0) g/dL Lipase 22 (8-78) U/L Beta HCG, Quant < 2 mIU/mL Urine Color Yellow Urine Appearance Clear Urine pH 7.0 (5.0-9.0) Ur Specific [place] 1.020 (1.005-1.025) Urine Protein Negative (Neg-Trace) mg/dL Urine Glucose (UA) Negative (Negative) mg/dL Urine Ketones Negative (Negative) mg/dL Urine Blood Trace H (Negative) Urine Nitrite Negative (Negative) Ur Leukocyte Esterase Small (1+) H (Negative) Urine RBC 3-5 H (0-2) /HPF Urine WBC 0-5 (0-5) /HPF Ur Squamous Epith Cells 0-2 (0-2) /HPF Urine Bacteria None Seen (None Seen) Hyaline Casts 0-2 (0-2) /LPF Discharge Plan Discharge Clinical Impression: Abdominal pain Patient Disposition: Left W/O Completing Treatment Prescriptions: No Action Mirena implant 0 mg vaginal DIRECTED trazodone 100 mg PO DAILY Ritalin 10 mg PO DAILY sertraline [Zoloft] 100 mg Tablet lorazepam 1 mg Tablet 1 mg PO melatonin 5 mg Tablet 15 mg PO BEDTIME PRN (Reason: Sleep) Discharge Date/Time: 07/02/24 22:32
[2024-07-02 19:18] VITALS: BP 139/67; PULSE 102; RESP 18; TEMP 36.6; O2SAT 96; BMI 43.8
[2024-07-02 20:07] LABS: MANUAL DIFF FLAG NO
[2024-07-02 20:24] LABS: Basophils Percent Auto 0.5 % (0-2); Eosinophils Absolute Auto 0.3 X10*3/uL (0.0-0.4); Eosinophils Percent Auto 3.3 % (0-4); Hematocrit 38.8 % (37.0-47.0); Hemoglobin 13.1 g/dl (12.0-16.0); Imm Gran Abs Auto 0.02 X10*3/uL (0.00-0.03); Imm Gran Pct Auto 0.2 % (0.0-0.4); Lymphocytes Absolute Auto 2.3 X10*3/uL (1.2-4.9); Lymphocytes Percent Auto 26.1 % (20-40); Mean Corpuscular HGB Conc 33.8 g/dl (31.0-35.0); Mean Corpuscular Hemoglobin 29.4 pg (27.0-33.0); Monocytes Absolute Auto 0.6 X10*3/uL (0.1-1.2); Monocytes Percent Auto 6.5 % (2-11); Neutrophils Absolute Auto 5.6 x10*3/uL (2.0-8.3); Neutrophils Percent Auto 63.4 % (45-73); Platelet Count 201 X10*3/uL (160-400); Red Blood Count 4.46 X10*6/uL (4.20-5.50); Red Cell Distribution Width 13.1 % (11.0-16.0); White Blood Count 8.8 X10*3/uL (4.8-10.8)
[2024-07-02 20:35] LABS: Alanine Aminotransferase 19 U/L (0-31); Albumin Level 4.1 g/dL (3.5-5.0); Alkaline Phosphatase 55 U/L (39-117); Anion Gap 11 (12-20); Aspartate Amino Transferase 21 U/L (5-31); Bilirubin Total 0.2 mg/dL (0.0-1.0); Blood Urea Nitrogen 11 mg/dL (9-16); Calcium 9.3 mg/dL (8.4-10.2); Carbon Dioxide 21 mmol/L (22-29); Chloride 109 mmol/L (96-108); Estimated Glomerular Filt Rate > 60; Glucose Random 123 mg/dL (60-115); Lipase 22 U/L (8-78); Sodium 137 mmol/L (135-145); Total Protein 7.4 g/dL (6.5-8.0)
[2024-07-02 20:39] LABS: HCG Quantitative < 2 mIU/mL
[2024-07-02 20:50] LABS: Appearance Urine Clear; Color Urine Yellow; Glucose Urine UA Negative (Negative); Leukocyte Esterase Urine Small (1+) (Negative); Nitrite Urine Negative (Negative); UMIC TRIGGER UACC YES; Urine Blood Trace (Negative); Urine Ketones Negative (Negative); Urine Protein Negative (Neg-Trace)
[2024-07-02 21:34] LABS: Bacteria Urine None Seen (None Seen); Hyaline Casts Urine 0-2 /LPF (0-2); Squamous Epithelial Cell Urine 0-2 /HPF (0-2); UACC Culture Trigger YES; WBC Urine 0-5 /HPF (0-5)
--- NOTE | 2024-07-02 22:08 | PC.NURSE ---
Pt wanting to leave at this time. Advised to stay but states she has school and work in the morning. Advised to come back for worsening symptoms or pain.
--- OUTSIDE RECORDS SUMMARY | 2024-07-02 22:20 | XMS_ITS | Clinical Summary ---
Author Organization 175 [facility] Address [address] [place] [phone] Phone Care Team Providers Care Automation Mechanic Name Role Phone Hillary Truong MD Primary Care Pr ovider Allergies Active Allergy Reactions Criticality Noted Date Comments Clindamycin Hives 03/10/2022 Mold 04/17/2023 Penicillins Hives 11/25/2009 Medications bacitracin zinc/polymyxin B (POLYSPORIN TOP) Apply 1 g topically 2 (two) times a day. for 10 days 4 Active acetaminophen (TYLENOL 8 HOUR) 650 mg 8 hr tablet Take 1 tablet (650 mg total) by mouth every 8 (eight) hours if needed (Pain). 3 Active amphetamine-dex troamphetamine (ADDERALL) 10 mg tablet Take 1 tablet (10 mg total) by mouth 1 (one) time each day. Max Daily Amount: 10 mg 4 Active fluticasone propionate (FLONASE) 50 mcg/actuation nasal spray Administer 1 spray into affected nostril(s) 2 (two) times a day. for 360 days. 4 025 Active levocetirizine (XYZAL) 5 mg tablet Take 1 tablet (5 mg total) by mouth 1 (one) time each day in the evening. 4 Active levonorgestreL (Mirena) 21 mcg/24 hr (8 yrs) 52 mg IUD by intrauterine route. 2 Active LORazepam (ATIVAN) 1 mg tablet Take 1 tablet (1 mg total) by mouth as needed. Max Daily Amount: 1 mg 4 Active sertraline (ZOLOFT) 50 mg tablet Take 3 tablets (150 mg total) by mouth 1 (one) time each day. 4 Active topiramate 25 mg capsule,extende d release 24hr Take 0.96 capsules (24 mg total) by mouth at bedtime. 4 Active traZODone (DESYREL) 50 mg tablet Take 1 tablet (50 mg total) by mouth at bedtime. 3 Active triamcinolone (NASACORT) 55 mcg nasal inhaler Administer 1 spray into affected nostril(s) 2 (two) times a day. 4 Active SUMAtriptan (IMITREX) 25 mg tablet TAKE 1 TABLET BY MOUTH NEEDED FOR MIGRAINE. MAY REPEAT DOSE ONCE AFTER 2 HOURS, IF NEEDED. 9 tablet 5 4 Active tirzepatide, weight loss, (Zepbound) 2.5 mg/0.5 mL injectionIndica tions:Class 3 severe obesity due to excess calories with body mass index (BMI) of 45.0 to 49.9 in adult, unspecified whether serious comorbidity present (CMS/[facility]) Inject 0.5 mL (2.5 mg total) under the skin every 7 (seven) days for 4 doses. 2 mL 5 025 Active Problems Problem Noted Date Diagnosed Date Morbid obesity with BMI of 45.0-49.9, adult 02/04 Migraine without aura and wi thout status migrainosus, not intractable 02/08/2024 Allergic rhinitis 12/31/2023 Chronic pansinusitis 12/31/2023 Mixed hyperlipidemia 12/31/2023 Celiac disease 10/22/2023 Anxiety and depression 07/12/2023 Factor 5 Leiden mutation, heterozygous 2 Mood disorder 05/16/2021 Overview (02/18/2024): 05/16/2021 positive Phq9, some anxiety, patient to seek therapy. IBS (irritable bowel syndrome) 10/17/2017 Overview (02/18/2024): 10/17/2017 ref to GI. 59/10/18 GI: not better after Gluten Free Diet. Unclear etiology. Bentyl, screen labs EGD/colonoscopy. FU 6 weeks. 01/21/18 EGD-Colonoscopy: NL, pending Bx 12/24/2019 GI: Abdominal pain and loose stools: To have colonoscopy, amitriptyline, follow-up in 3 months 12/30/2019 GI: Biopsy EGD/colonoscopy negative, CBC, ESR, CRP, ALT within normal limits Skin lesion of breast 12/25/2016 Overview (02/18/2024): 12/25/2016 confirmed by US, pt and mother prefer to observe. Back pain 09/11/2016 Overview (02/18/2024): 08/29/16 [facility] : severe , MSK, PT. No FU 11/30/16 [facility] : unable top go to PT continue exercises at home no FU. Keratosis pilaris 08/14/2016 Leg length discrepancy 09/06/2015 Overview (02/18/2024): 5.16 Seen at [facility] Right 1.2 cm shorter will recheck in 6 months Chalazion of right upper eyelid 08/18/2013 Overview (02/18/2024): Noticed 08/18/13 for years, no change in size, will observe mother not interested in surgical removal. 03/13/14 bothering her, no bigger, ref to oph Attention deficit disorder 07/11/2010 Overview (02/18/2024): Started on adderall xr 5 mg 03/07/11 10/23/11 adderall xr 10 mg doing fine, no side effects, pending therapy for moodiness on waiting list. Will probably moved with father after summer 2011 Letter received from [facility] for release of information 12/04/11 05/14/12 no mood problmes, not seen therapist, off ADHD meds since 08/17 doing better 06/20 - no longer taking meds, has 504 plan in school 06/21 restarted on Adderrall xr 10, 07/19 increased to Adderall xr 15 12/25/2016 increased to 20 07/03/2017 mother wanted to increase afternoon dose. 25 mg am, 10 mg noon. FU in a month. 03/24/2019 High dose Adderall not working. Trial for Concerta. 05/09/2019 No side effects, mother and pt wants to go back on Adderall. Increasing dose of Concerta offered but declined. 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 FU in 4 months. Encounters Date Type Department Care Team Description 05/22/2024 1:30 PM EST Consult Bariatric Surgery - [place] [address] [facility] [address] [place] [address] Delfino Friedman MD Class 3 severe obesity due to excess calories with body mass index (BMI) of 45.0 to 49.9 in adult, unspecified whether serious comorbidity present (CMS/HCC) (Primary Dx) 04/07/2024 Telephone General Surgery [facility] [address] [facility] [address] [place] [address] Shayne Roman, Prior Authorization (04/14/24 Dr. Shayne Roman) from Last 3 Months Immunizations Name Administration Dates Next Due DTaP (Infanrix) 6wks to less than 7yo ,03/14/2004,03/27/2003,01/16,2002 [id number] (Pentacel) 2mo to less than 5yo 01/06/2004,03/27/2003,01/16/2003,11/11 HPV 9-valent (Gardisil) 9yo to less than 46yo 05/05/2016,07/13/2015,03/25/2015 Hepatitis B Pediatric (Enger ix B; Recombivax HB) to less than 20 yo 06/26/2003,2002,2002 IPV Inactivated polio (Ipol) 6wks and older 01/25/2007,03/14/2004,01/16/2003,11/11 Influenza trivalent, 0.5mL, preservative free (Fluarix; FluLaval; Fluzone) ages 6mo and older (Afluria) 3 years and older 02/08/2024,03/07/2016,03/25/2015,05/14,02/26/2012,03/07/2011 Influenza trivalent, with pr eservative (Fluzone; Afluria) 6mo and older 03/14/2004 Influenza, live, intranasal, trivalent (FluMist) 2yo to less than 50yo 02/24/2014 MMR, measles mumps and rubel la Live (Priorix; M-M-R II) 12mo and older 01/06/2004 MMRV, measles mumps rubella and varicella live (Proquad) 4yo to less than 7yo 01/25/2007 Meningococcal MCV4P 03/24/2019,06/03/2014 Pneumococcal Conjugate Vacci ne, 7 Valent 03/14/2004,03/27/2003,01/16/2003,11/11 Pneumococcal conjugate 20 va lent (Prevnar 20, PCV 20) 2mo and older 02/08/2024 Tdap Tetanus diptheria acell ular pertussis (Boostrix; Adacel) 7yo and older 06/03/2014 Varicella live (Varivax) 12m o and older 11/02/2003 Surgical History Surgery Date Site/Laterality Comments WISDOM TOOTH EXTRACTION 2020 PROCEDURE: HISTORICAL WISDOM TEETH EXTRACTION TONSILLECTOMY 09/2022 PROCEDURE: HISTORICAL TONSILLECTOMY Medical History Medical History Date Comments Overweight(278.02) DX:Overweight (278.02) Closed fracture of fifth met atarsal bone 05/17/2011 DX:Closed fracture of fifth metatarsal bone Leg length discrepancy 09/01/2015 DX:Leg le ngth discrepancy; COMMENT: R 1.2cm shoretr RAD (reactive airway disease) 02/24/2014 DX :RAD (reactive airway disease) Factor V Leiden mutation (CMS/HCC) DX:Factor V Leiden mutation (HCC) Esophageal reflux DX:Esophageal reflux Irritable bowel syndrome DX:Irri table bowel syndrome Family History Medical History Relation Name Comments Other: B12 deficiency Aunt x 3 Hypertension Father HLD, depression , h/o DVT Other: autism Half-Brother twins Heart attack Maternal Grandfather Hypertension Maternal Grandmother Factor V Leiden Hypertension Mother anxiety/depress ion Other: B12 deficiency Paternal Grandmother Relation Name Status Comments Aunt x 3 Alive Father Alive Half-Brother twins Alive Half-Sister x 1 Alive Maternal Grandfather Alive Maternal Grandmother Alive Mother Alive Paternal Grandfather unknown Other Paternal Grandmother Alive Social History Tobacco Use Types Packs/Day Years Used Date Smoking Tobacco: Every Day Smokeless Tobacco: Never Alcohol Use Standard Drinks/Week Comments Yes 0 (1 standard drink = 0.6 oz pur e alcohol) Comments Unknown Sex and Gender Information Value Date Recorded Sex Assigned at Not on file Legal Sex Female 5:52 PM EST Gender Identity Not on file Sexual Orientation Not on file Obstetrics History Last Filed Vital Signs Vital Sign Reading Time Taken Comments Blood Pressure 121/76 05/22/2024 1:28 PM EST Pulse 79 05/22/2024 1:28 PM EST Temperature 36.6 ??C (97.8 ??F) 05/22/2024 1:28 PM ES T Respiratory Rate - - Oxygen Saturation - - Inhaled Oxygen Concentration - - Weight 134 kg (296 lb) 05/22/2024 1:28 PM EST Height 170.2 cm (5' 7 ) 05/22/2024 1:28 PM EST Body Mass Index 46.36 05/22/2024 1:28 PM EST Plan of Treatment Upcoming Encounters Date Type Department Care Team (Late st Contact Info) Description 08/18/2024 2:30 PM EDT Office Visit Adult Medicine [address] [phone] Hillary Truong MD [address] [place] [phone] 10/07/2024 3:00 PM EDT Office Visit Bariatric Surgery - [place] [address] [phone] Delfino Friedman MD [address] [phone] Health Maintenance Due Date Last Done Comments Meningococcal B Vacine (1 of 2 - Standard) 2018 COVID-19 Vaccine (3 - Pfizer risk series) 10/30/2020 10/02/2020, 09/10/2020 Hepatitis C Screening 04/15/2022 Social Influencers of Health Screening 04/15/2022 Cervical Cancer Screening: Pap Smear 09/10/2023 DTaP,Tdap,and Td Vaccines (7 - Td or Tdap) 06/03/2024 06/03/2014, 01/25/2007, 03/14/2004, Additional history exists Gonorrhea/Chlamydia Screening 08/22/2024 08/23/2023 Annual Well Child Visit (3-21 years old) 10/21/2024 10/22/2023, 05/04/2022, 05/16/2021, Additional history exists Depression Screening 12/30/2024 12/31/2023 Cholesterol Screening (Lipid Panel) 10/29/2028 10/30/2023, 10/30/2023 Hepatitis B Vaccines Completed 06/26/2003, 2002, 2002 HIB Vaccines Completed 01/06/2004, 03/08, 01/16/2003, Additional history exists IPV Vaccines Completed 01/25/2007, 12/2003, 01/06/2004, Additional history exists MMR Vaccines Completed 01/25/2007, 01/06/2004 Varicella Vaccines Completed 01/25/2007, 11/02/2003 HPV Vaccines Completed 05/05/2016, 12/2015, 03/25/2015 Meningococcal ACWY Vaccine Completed 03/24/2019, HIV Screening Completed 05/04/2022 Influenza Vaccine Completed 02/08/2024, , 03/25/2015, Additional history exists Pneumococcal Vaccine: Pediatrics (0 to 5 Years) and At-Risk Patients (6 to 64 Years) Completed 02/08/2024, 03/14/2004, 03/27/2003, Additional history exists Hepatitis A Vaccines Aged Out No long er eligible based on patient's age to complete this topic RSV Immunization Patients Under 20 months Aged Out No longer eligible based on patient's age to complete this topic Procedures Procedure Name Priority Date/Time Associated Diagnosis Comments HM DEPRESSION SCREENING Routine 12/31/2023 LIPID PANEL Routine 10/30/2023 HM GONORRHEA/CHLAMYDIA SCRREENING Routine 08/23/2023 HIV SCREENING Routine 05/04/2022 from Last 3 Months or Most Recently Relevant to Health Maintenance Results * Depression Screening (12/31/2023) Pathologist [facility] Depression Screening Abstracted [facility] Provider HEALTH MAINTENANCE Final Result * (ABNORMAL) Lipid panel (10/30/2023) [facility] LDL/HDL Ratio 5(A) 0 - 4 Triglycerides 163(A) 0 - 150 mg/dL Cholesterol 201(A) 0 - 200 mg/dL HDL 41 >=40 mg/dL LDL Cholesterol 128(A) 0 - 100 mg/dL Blood Venous blood specimen / Unknown [facility] Provider LAB BLOOD ORDERABLES Margie l Result * Gonorrhea/Chlamydia Screening (08/23/2023) Pathologist [facility] Gonorrhea/Chla mydia Screening Abstracted [facility] Provider HEALTH MAINTENANCE Final Result * HIV Screening (05/04/2022) [facility] HIV Screening Abstracted [facility] Provider HEALTH MAINTENANCE Final Result from Last 3 Months or Most Recently Relevant to Health Maintenance [place] [address] [place] [address] [employer] PLAN Care Teams Automation Mechanic Relationship Specialty Start Date End Date Hillary Truong MD [address] [facility] [address] PCP - General Internal Medicine 02/22/22
== END 2024-07-02 22:32 | disposition left against medical advice (07) ==
LOC: HO.ED 22:17
PROVIDERS: Physician Assistant; Emergency Provider Emergency Medicine; PCP Family Medicine
DX: R10.2 Pelvic and perineal pain (principal)
CPT/HCPCS: 36415; 76830; 76856; 80053; 81001; 83690; 84702; 85025; 87086; 99282; 99284

== ENCOUNTER → 2024-07-02 19:17 | Outpatient (BNV) | payer OTHER, SELFPAY | PROVIDERS: PCP Family Medicine; Visit Provider Radiology Diagnostic Radiology | DX: R10.2 Pelvic and perineal pain (principal) | CPT/HCPCS: 76830; 76856 ==